=== PATIENT | female | born 1995 | race Caucasian/White ===

== ENCOUNTER 2017-06-27 15:06 | Emergency (ER) | payer OTHER ==
[~2017-06-27] VITALS: Ht 170.2 cm; Wt 64.2 kg
[2017-06-27 15:17] VITALS: BP 153/68; PULSE 115; RESP 16; TEMP 98.2; O2SAT 100
[2017-06-27] MEDS ORDERED: TETANUS/DIPHTHERIA TOXOID ADULT 0.5 ML VIAL IM ONE (16:00)
[2017-06-27] MEDS ORDERED: LIDOCAINE HCL 2% 50 ML VIAL NERV BLOCK ONE (16:00)
--- NOTE | 2017-06-27 16:59 | PD ---
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 Patient states that she actually got cut by a hand meat salter resulting in this injury. States the area bled significantly but was controllable with pressure. States the pain is moderate in severity. Aching. Denies any numbness or tingling. Denies any weakness of the finger. Denies chronic medical issues medication use. She has not remember her last tetanus vaccination. She has no other complaints today. [facility] Past Medical History Medical History: Denies Significant Hx Diminished Hearing: No Influenza Vaccination: No ?: Not Past Surgical History Surgical History: No Previous Surgery Social History Alcohol Use: No Tobacco Use: No Allergies-Medications (Allergen,Severity, Reaction): Coded Allergies: No Known Allergies (Verified Allergy, Unknown, 06/27/17) Reported Meds & Prescriptions Reported Meds & Active Scripts Active No Active Prescriptions or Reported Medications Review of Systems Except as stated in HPI: all other systems reviewed are Neg Physical Exam Narrative GENERAL: Well-nourished, well-developed patient. SKIN: Focused skin assessment warm/dry. Left pinky finger-distal aspect along finger pad avulsion present approximately 1 cm without gross contamination. No evidence of ligamental, vascular or bony involvement HEAD: Normocephalic. EYES: No scleral icterus. No injection or drainage. NECK: Supple, trachea midline. No JVD or lymphadenopathy. CARDIOVASCULAR: Regular rate and rhythm without murmurs, gallops, or rubs. RESPIRATORY: Breath sounds equal bilaterally. No accessory muscle use. MUSCULOSKELETAL: No cyanosis, or edema. BACK: Nontender without obvious deformity. No CVA tenderness. Data Data Last Documented VS Vital Signs Date Time Temp Pulse Resp B/P (MAP) Pulse Ox O2 Delivery O2 Flow Rate FiO2 06/27/17 15:17 98.2 115 16 153/68 (96) 100 Orders Orders Tetanus/Diphtheria Tox Adult (Tetanus/Di (06/27/17 16:00) Lidocaine 2% Inj (Xylocaine 2% Inj) (06/27/17 16:00) Ed Discharge Order (06/27/17 17:00) [facility] Medical Decision Making Medical Screen Exam Complete: Yes Emergency Medical Condition: Yes Differential Diagnosis Left small finger laceration, avulsion, abrasion Narrative Course 22-year-old female presents emergency department for evaluation of left pinky finger laceration as she was cutting up meat at work today. Patient states that she actually got cut by a hand meat salter resulting in this injury. States the area bled significantly but was controllable with pressure. States the pain is moderate in severity. Aching. Denies any numbness or tingling. Denies any weakness of the finger. Denies chronic medical issues medication use. She has not remember her last tetanus vaccination. She has no other complaints today. Vital signs stable. Physical exam findings consistent with an avulsion type of injury to the fifth pinky finger on the right hand. She denies any numbness or tingling. Laceration repair completed. Advised that patient may not be able to completely salvage the finger pad. Wound care instructions given. Suture removal in 7-10 days. Advised that the follow-up with the primary care physician regarding following the wound. Patient advised to keep the area clean and dry. Procedures Procedure Narrative LACERATION LOCATION: Little finger left hand LENGTH: 1 cm NUMBER OF STITCHES/NATHEN: 6 REPAIR: The area of the laceration was prepped with Betadine and sterilely draped. A digital block was performed with 2% lidocaine without epinephrine .the wound was copiously irrigated and explored without evidence of foreign body , tendon injury or neurovascular injury. The wound was closed using 5-0 Prolene. This was a single layer repair. A sterile dressing was applied. The patient was advised to keep the dressing clean and dry. Patient tolerated the procedure well. Diagnosis Primary Impression: Finger laceration Qualified Codes: S61.217A - Laceration without foreign body of left little finger without damage to nail, initial encounter Referrals: [facility] Departure Forms: Tests/Procedures, Work Release Enter return to work date: Jun 30, 2017 Special Instructions: Avoid excessive moisture. Keep area DRY. Additional Instructions: Follow up with your primary care physician within 2-3 days. If your symptoms persist or worsen, return to the emergency department. Keep area clean and dry for 24 hours. You may bathe as normal after 24 hours but ensure you dry the area thoroughly. Change dressings daily. If bleeding starts again, applied pressure and elevate the area. If he developed increased redness, swelling, or pain return to the emergency department. suture removal in 7-10 days Scripts No Active Prescriptions or Reported Meds Disposition: 01 DISCHARGE HOME Condition: Stable Lou Sanchez Jun 27, 2017 16:59
== END 2017-06-27 18:15 | disposition home or self-care (01) ==
LOC: PHEFT 15:06
DX: S61.217A Laceration without foreign body of left little finger without damage to nail, initial encounter (principal); W31.89XA Contact with other specified machinery, initial encounter; Y99.0 Civilian activity done for income or pay; Z23 Encounter for immunization
CPT/HCPCS: 12001; 90471; 90714